=== PATIENT | female | born 1965 | race Two or more races ===

== ENCOUNTER 2017-09-27 14:16 | Emergency (ER) | payer OTHER ==
[~2017-09-27] VITALS: Ht 165.1 cm; Wt 56.7 kg
[~2017-09-27 14:16] MED LIST: IBUPROFEN600 MG ORAL
[2017-09-27] MEDS ORDERED: NKM (14:33)
[2017-09-27 14:43] VITALS: BP 131/77
[2017-09-27] MEDS ORDERED: Tylenol #3 tab (300mg/30mg) ORAL ONE (14:45)
[2017-09-27] MEDS ORDERED: Lidocaine 1% Plain 30 ml INJ ONE (15:15)
--- NOTE | 2017-09-27 15:15 | Emergency Room Report ---
History of Present Illness General Chief Complaint: Upper Extremity Injury Source: Patient Present Illness HPI 51-year-old female presents to the emergency department complaining of erythema , swelling, tenderness and increased temperature palpation to the left index finger over the course of 6 days. Patient states that she initially sustained injury to her finger when it got caught in a bed railing while at work. Patient states that she was evaluated by workers compensation provider who gave her antibiotic topical. Patient states that her symptoms began to progress and when she was re-evaluated 2 days ago she was placed on oral antibiotics in addition to anti-inflammatory medications. Patient presents today because her symptoms continued to progress and are not getting better. Patient states the pain is 9/10 in severity. Patient states that she is right-handed. She denies fevers or chills. Patient states she is up-to-date with tetanus vaccination. Denies numbness tingling or loss of sensation or gross motor movements of the extremities, incontinence of bowel or bladder. Denies CP, Palpitations, LOC, AMS , dizziness, Changes in Vision, Sensation, paresthesias, or a sudden severe headache. Allergies: Coded Allergies: No Known Allergies (Unverified , 10/18/16) Patient History Past Medical History: see triage record Past Surgical History: none Pertinent Family History: none Last Menstrual Period: Menopause Immunizations: UTD Reviewed Nursing Documentation: PMH: Agreed, PSxH: Agreed Nursing Documentation-PMH Past Medical History: No Stated History Review of Systems All Other Systems: negative except mentioned in HPI Physical Exam Vital Signs Date Time Temp Pulse Resp B/P (MAP) Pulse Ox O2 Delivery O2 Flow Rate FiO2 09/27/17 14:24 97.7 77 16 131/77 100 Room Air Sp02 EP Interpretation: reviewed, normal General Appearance: no apparent distress, alert, GCS 15, non-toxic Head: normocephalic, atraumatic Eyes: bilateral eye normal inspection, bilateral eye PERRL ENT: hearing grossly normal, normal voice Neck: full range of motion Respiratory: lungs clear, normal breath sounds, speaking full sentences Cardiovascular #1: regular rate, rhythm, normal capillary refill Musculoskeletal: back normal, gait/station normal, normal range of motion, inflammation - left index finger, swelling - left index finger, tender - superficial ttp left index finger, obvious abscess and cellulitis, no bony ttp. Neurologic: alert, oriented x3, responsive, motor strength/tone normal, sensory intact, normal gait, speech normal Skin: no rash, warm/dry, well hydrated, other - cellulitis and abscess of the left index finger 2cm in size with visible purulence and palpable fluctuance. there is erythema, increased temperature to palpation and tenderness. no streaking noted, pt. has FROM of affected finger. Procedures Incision and Drainage Incision and Drainage : Consent: Verbal Site: dorsal left index finger Blade Size: 11 I & D Procedure: betadine prep Wound Location: upper extremity - dorsal left index finger Wound's Depth, Shape: superficial Wound Length (cm): 1 Wound Explored: contaminated - purulent drainage is expressed Anesthesia: 1% Lidocaine Volume Anesthetic (ccs): 6 Splint Applied?: No Sling Applied?: No Patient Tolerated: Well Complications: None Medical Decision Making PA Attestation Dr. ontiveros is my supervising Physician whom patient management has been discussed with. Diagnostic Impression: Primary Impression: Cellulitis and abscess of finger, unspecified ER Course 51-year-old female presents to the emergency department complaining of erythema , swelling, tenderness and increased temperature palpation to the left index finger over the course of 6 days. Patient states that she initially sustained injury to her finger when it got caught in a bed railing while at work. Patient states that she was evaluated by workers compensation provider who gave her antibiotic topical. Patient states that her symptoms began to progress and when she was reevaluated 2 days ago she was placed on oral antibiotics in addition to anti-inflammatory medications. Patient presents today because her symptoms continued to progress and are not getting better. Patient states the pain is 9/10 in severity. Patient states that she is right-handed. She denies fevers or chills. Patient states she is up-to-date with tetanus vaccination. Denies numbness tingling or loss of sensation or gross motor movements of the extremities, incontinence of bowel or bladder. Denies CP, Palpitations, LOC, AMS , dizziness, Changes in Vision, Sensation, paresthesias, or a sudden severe headache. Ddx considered but are not limited to cellulitis, abscess, cystic acne, necrotizing fasciitis, insect bite. Vital signs: are WNL, pt. is afebrile H&PE are most consistent with cellulitis and abscess of the left index finger 2cm in size with visible purulence and palpable fluctuance. there is erythema, increased temperature to palpation and tenderness. no streaking noted, pt. has FROM of affected finger. ORDERS: none required at this time, the diagnosis is clinical ED INTERVENTIONS: -I & D. - Bactrim DS DISCHARGE: At this time pt. is stable for d/c to home. Will provide printed patient care instructions, and any necessary prescriptions. Care plan and follow up instructions have been discussed with the patient prior to discharge. Last Vital Signs Date Time Temp Pulse Resp B/P (MAP) Pulse Ox O2 Delivery O2 Flow Rate FiO2 09/27/17 14:43 97.7 78 16 131/77 100 Room Air Disposition: HOME, SELF-CARE Condition: Stable Scripts Trimethoprim/Sulfamethoxazole 160/800* (BACTRIM DS TABLET*) 1 Each Tablet 1 TAB ORAL TWICE A DAY for 7 Days, #14 TAB Prov: Prachi Shannon 09/27/17 Bacitracin/Polymyxin B Sulfate (BACITRACIN-POLYMYXIN OINTMENT) 28.35 Gm Oint...g. 1 APPLIC TP BID, #28.3 GM Prov: Prachi Shannon 09/27/17 Acetaminophen With Codeine (T#3) (TYLENOL #3 TAB*) Y Tab 1 TAB ORAL Q6H Y for For Pain, #10 TAB Prov: Prachi Shannon 09/27/17 Referrals: NOT CHOSEN IPA/MD,REFERRING (PCP) Patient Instructions: Abscess Additional Instructions: Take medications as directed. Follow up with a Primary Care Provider in 3-5 days, even if your symptoms have resolved. --Please review list of primary care clinics, if you do not already have a primary care provider Return sooner to ED if new symptoms occur, or current symptoms become worse. Do not drink alcohol, drive, or operate heavy machinery while taking Tylenol # 3 as this may cause drowsiness. - Please note that this Emergency Department Report was dictated using [employer]clinical trial data manager technology software, occasionally this can lead to erroneous entry secondary to interpretation by the dictation equipment. Prachi Shannon Sep 27, 2017 15:15
[2017-09-27] MEDS ORDERED: ACETAMINOPHEN-1 EAC1 ORAL (15:39)
[2017-09-27] MEDS ORDERED: BACITRACIN-P28.35 GM TP (15:39)
[2017-09-27] MEDS ORDERED: BACTRIM DS TAB1 EAC1 ORAL (15:40)
[2017-09-27] MEDS ORDERED: Bactrim DS (160mg/800mg) tab ORAL ONE (15:45)
[2017-09-27 16:14] VITALS: BP 131/77
== END 2017-09-27 16:17 | disposition home or self-care (01) ==
LOC: EMR 14:52
DX: L03.012 Cellulitis of left finger (principal); L02.512 Cutaneous abscess of left hand
CPT/HCPCS: 10060; 99284; J2001